=== PATIENT | male | born 1980 ===

== ENCOUNTER 2020-08-23 15:09 | Emergency (ER) | payer OTHER ==
[~2020-08-23] VITALS: Ht 165.1 cm; Wt 73.0 kg
[2020-08-23] MEDS ORDERED: LEVETIRACETAM 500 MG TABLET PO STA (15:20)
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
[2020-08-23] MEDS ORDERED: LEVETIRACETAM 500 MG TABLET ONE (15:42)
[2020-08-23] MEDS ORDERED: LEVE500T53 PO (15:53)
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
[2020-08-23 16:05] LABS: ALANINE AMINOTRANSFERASE 36 U/L (12-78); ALBUMIN 4.5 g/dL (3.4-5.0); ANION GAP 18 mmol/L (5-15); CHLORIDE 106 mmol/L (98-107); CREATININE 1.32 mg/dL (0.7-1.3)
[2020-08-23 16:08] LABS: ALKALINE PHOSPHATASE 91 U/L (45-117); BILIRUBIN,TOTAL 0.3 mg/dL (0.2-1.0); TOTAL PROTEIN 8.6 g/dL (6.4-8.2)
[2020-08-23 16:11] LABS: MEAN PLATELET VOLUME 7.7 fL (7.4-10.4); PLATELET COUNT 269 x10^3/uL (130-400); RED BLOOD COUNT 5.74 x10^6/uL (4.38-5.82); RED CELL DISTRIBUTION WIDTH 12.7 % (9.4-14.8)
[2020-08-23 16:31] LABS: MD YES
[2020-08-23 16:35] LABS: BAND#(MANUAL) 2.17 x10^3/uL; BANDS%(MANUAL) 11 % (0-7); BASOS% (MANUAL) 1 % (0-1); LYMPH#(MANUAL) 1.58 x10^3/uL (1-3.4); LYMPHS% (MANUAL) 8 % (22-44); MONOS#(MANUAL) 1.77 x10^3/uL (0.3-2.7); MONOS% (MANUAL) 9 % (2-9); SEG#(MANUAL) 13.99 x10^3/uL (1.8-6.8); SEGS% (MANUAL) 71 % (42-75)
--- NOTE | 2020-08-23 16:35 | NUR ---
Pt given urinal and educated about need for UA. Pt arousable to verbal stimuli, communicated understanding. Officers remain at bedside.
[2020-08-23 16:39] LABS: <PLATELET ESTIMATE> ADEQUATE; <PLT MORPHOLOGY> NORMAL PLT MORPH
[2020-08-23 16:40] LABS: ANISOCYTOSIS 1+; TEAR DROPS 1+
[2020-08-23 16:41] LABS: OVALOCYTES 1+
--- NOTE | 2020-08-23 17:07 | NUR ---
Pt refusing to attempt to urinate. ERP made aware.
--- NOTE | 2020-08-23 17:52 | NUR ---
Pt threw up, red in color, liquid. Pt denies N/V up to this point. Denies dark tarry stool.
[2020-08-23] MEDS ORDERED: SODIUM CHLORIDE 0.9% 1,000ML IVBOLUS ONE (18:00)
[2020-08-23] MEDS ORDERED: ONDANSETRON 2MG/ML, 2ML IVPush ONE (18:30)
[2020-08-23] MEDS ORDERED: ONDANSETRON 2MG/ML, 2ML ONE (18:45)
--- NOTE | 2020-08-23 18:53 | NUR ---
Bedside report to RICKEY DILLON. Pt arousable to verbal stimuli, oriented. NADN. Officers at bedside.
--- NOTE | 2020-08-23 19:00 | NUR ---
Report received from RICKEY Ware. This RN to assume care. Patient sleeping. Arousable to verbal stimuli. Deputies at bedside.
[2020-08-23] MEDS ORDERED: OMNIPAQUE 350 MG/ML, 100ML BOTTLE ONE (19:47)
[2020-08-23 20:36] LABS: MICROSCOPIC INDICATED
[2020-08-23 20:41] LABS: AMPHETAMINE SCREEN, URINE Negative (Negative); BARBITURATE SCREEN, URINE Negative (Negative); BENZODIAZEPINE SCREEN, URINE Negative (Negative); CANNABINOID SCREEN, URINE Negative (Negative); COCAINE SCREEN, URINE Negative (Negative); METHADONE SCREEN, URINE Negative (Negative); OPIATE SCREEN, URINE Negative (Negative)
[2020-08-23 21:59] VITALS: BP 130/87
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
[2020-08-23] MEDS ORDERED: PROMETHAZINE 25 MG/ML, 1ML IM STA (22:03)
[2020-08-23] MEDS ORDERED: PROMETHAZINE 25 MG/ML, 1ML ONE (22:04)
--- NOTE | 2020-08-23 22:08 | NUR ---
PT VOMITED UPON SITTING UP, UPDATED ER PROVIDER. PT MEDICATED PER OCT.
== END 2020-08-23 22:40 | disposition home or self-care (01) ==
LOC: ED 16:24
DX: S09.90XA Unspecified injury of head, initial encounter (principal); G40.409 Other generalized epilepsy and epileptic syndromes, not intractable, without status epilepticus; R79.1 Abnormal coagulation profile; R00.0 Tachycardia, unspecified; R10.9 Unspecified abdominal pain; Z91.14 Patient's other noncompliance with medication regimen; X58.XXXA Exposure to other specified factors, initial encounter; Y93.89 Activity, other specified; Y92.89 Other specified places as the place of occurrence of the external cause; Y99.8 Other external cause status
CPT/HCPCS: 36415; 70450; 74177; 80053; 80307; 80320; 81001; 83690; 85025; 93005; 96372; 96374; 99285; J2405; J2550; Q9967; G0480